=== PATIENT | male | born 1945 | race Caucasian/White ===

== ENCOUNTER → 2020-05-22 09:57 | Outpatient (CLI) | payer MEDICARE, OTHER, SELFPAY ==
--- NOTE | 2020-05-22 | DI.RAD.S_ITS ---
PROCEDURE: [place] BARIUM SWALLOW INDICATIONS: Dysphagia unspecified COMPARISON: None. FINDINGS: Function: Tertiary contraction waves noted in distal esophagus compatible with mild esophageal dysmotility. No elicited gastroesophageal reflux. There is normal transit of a calibrated barium tablet through the esophagus into the stomach. Silent aspiration was noted during the study. Morphology: Air-contrast images demonstrate normal mucosal morphology. Single contrast views show no esophageal strictures, extrinsic mass effects, or diverticula. Limited images of the stomach demonstrate normal appearance. IMPRESSION: 1. Silent aspiration. 2. Mild distal esophageal dysmotility. 3. No gastroesophageal reflux. Dictated by: Ernestine Gray MD, PhD on 05/22/2020 at 12:33 Approved by: Ernestine Gray MD, PhD on 05/22/2020 at 12:35
== END ==
PROVIDERS: Referring Provider Family Medicine; Visit Provider Family Medicine
DX: R13.10 Dysphagia, unspecified (principal); K22.4 Dyskinesia of esophagus; J98.8 Other specified respiratory disorders
CPT/HCPCS: 74220

== ENCOUNTER → 2020-11-05 08:50 | Outpatient (CLI) | payer MEDICARE, OTHER, SELFPAY ==
--- NOTE | 2020-11-05 | DI.RAD.S_ITS ---
PROCEDURE: FL BARIUM SWALLOW W SPEECH INDICATIONS: Dyskinesia of esophagus COMPARISON: TECHNIQUE: Examination was conducted in conjunction with speech pathology per standard protocol. In the lateral projection, filming was performed of the patient swallowing. AP projection filming may also be performed with patient swallowing. COMPARISON: [facility], , [place] BARIUM SWALLOW, 05/22/2020, 9:21. FINDINGS: Function: The oral preparatory phase appears normal, with proper containment. The subsequent oral propulsive phase, pharyngeal phase, and esophageal phase of swallowing also appear normal with all proffered substances. Frequent silent tracheal aspiration noted. Moderate residue. Morphology: No cricopharyngeal bar is identified. No cervical esophageal webs. No Zenker's diverticulum. No strictures. IMPRESSION: Silent tracheal aspiration. Dictated by: Manohar Schulz M.D. on 11/05/2020 at 11:57 Approved by: Manohar Schulz M.D. on 11/05/2020 at 11:58
--- NOTE | 2020-11-05 12:52 | ST.SWALLOW ---
Visit Care Team Role Provider Type ZINA Dominguez Attending Provider Non-Staff Primary Care Provider Referring Provider Specialty: Family Practice Address: [address] [place] [address], [id number] Email: Modified Barium Swallow Study SPA ASSOCIATE Modified Barium Swallow Study Start: 11/05/20 10:35 Freq: Status: Active Protocol: Document 11/05/20 10:36 LNK (Rec: 11/05/20 12:50 LNK [id number]) Modified Barium Swallow Study Total Time Visit Start Time 09:30 Visit Stop Time 10:00 Total Visit Minutes 30 Referral Referring Physician ZINA Dominguez Reason for Referral aspiration/dysphagia Setting Setting Outpatient Care Patient Information Identification Type Name,Date of Patient History Pt seen for a Modified Barium Swallow Study at the referral of his practitioner. According to medical records reviewed, the pt was seen for a barium swallow study in May 2020. During that assessment, as the pt was swallowing the contrast, there was silent aspiration observed. (See radiologist report 05/22/2020) MBSS was ordered. Subjective Observations Pt was seated in the fluoroscopy chair. Instructions and procedure were provided to the pt, who indicated he understood and agreed to proceed. Patient Positioning Position View Lateral Imaging Lateral View Textures Administered Trials Presented Thin Liquid via Spoon,Thin Liquid via Cup,Arlee Liquid via Spoon,Arlee Liquid via Cup,Pudding Thick Liquid via Spoon,Regular Textures Oral Phase Source: MBSIMP (TM) (C) Bolus Specific Scoring Grid Lip Closure WFL Tongue Control During Bolus Hold WFL Bolus Prep/Mastication WFL Bolus Transport/Lingual Motion WFL A/P Lingual Propulsion Delay No Oral Residue No Impairment (WNL) Residue Clearing WFL Nasal Regurgitation No Additional Oral Phase Observations OME indicated missing teeth upper with few molars. Anterior teeth intact. All lower teeth natural in good health. Missing molars (upper ) may present a possible impact on mastication. However , pt feels he is chewing adequately. Pharyngeal Phase Source: MBSIMP (TM) (C) Bolus Specific Scoring Grid Delayed Initiation of Pharyngeal Swallow Yes: Premature spillage to the valecula Number of Seconds Delayed (seconds) ~1+ seconds Soft Palate Elevation WFL Residue Along the Tongue Base Yes Laryngeal Elevation Mild Impairment Anterior Hyoid Movement Moderate Impairment Epiglottic Range of Motion Moderate Impairment Vallecular Residue Yes: Moderate residue; subvallecula residue Clearance of Vallecular Residue Severe Impairment Laryngeal Vestibular Closure Moderate Impairment Pharyngeal Stripping Wave Moderate Impairment Posterior Pharyngeal Wall Residue Yes Clearance of Posterior Pharyngeal Wall Moderate Impairment Residue Upper Esophageal Sphincter Opening WFL Residue in the Pyriform Sinuses Yes Clearance of Residue in the Pyriform Moderate Impairment Sinuses Esophageal Clearance Upright Position WFL Pharyngoesophageal Backflow Observed No Additional Pharyngeal Phase Observations Premaure spillage to the valeculla with silent shadi aspiration (anterior trachea) was observed with the initial tsp of barium. Cued cough did not eliminate tracheal residue . Mild impairment of the elevation of the larynx with moderate impairment of the hyoid bone forward movement. Reduced hyoid movement impacted the epiglottis in that, with smaller bolus sizes , the epiglottis did not fully invert. Instead, it was horizontal in the pharynx with the epiglottal tip against the posterior pharyngeal wall. As a result, there was minimal contact between the tongue base and the pharynx leaving significant residue within the tongue base and the valeculla. Pooling was also noted in the pyriform sinuses, the posterior pharyngeal wall and along the vocal folds. There also appeared to be minimal contraction of the medial pharyngeal constrictor, contributing to the valecullar residue. Valecullar pooling was eventually observed under the epiglottis, which penetrated the laryngeal vestibule with each swallow (trace to minimal amounts/swallow). With larger bolus sizes (i.e., 3 consecutive swallows), the epiglottis did invert. However the laryngeal seal was poor with larger amounts of subepiglottic residue entering the larynx via incomplete approximation of the arytenoids to the epiglottis. This was observed frequently throughout the MBSS. Laryngeal penetration was observed with thin liquids as well as nectar thick liquids. Eventually, the valecullar and sub-epiglottic residue was aspirated silently (posterior trachea). Residue along the anterior wall of the thyroid cartilage was present throughout the MBSS. Trial supraglottic swallow technique was tried with no improvement in swallow safety. Coughing (cued/spontaneous) was mildly effective in clearing residue; however, trace residue remained in the trachea and along the vocal folds. After the MBSS the results of the evaluation were discussed with the pt with still images of the swallows recorded. During this discussion the pt remarked that he has observed a change in his voice. He stated that he feels his voice is more raspy and hoarse. It is possible that there is an element of presbylaryngis, given he pt's age. This could contribute to aspiration as the vocal folds would be bowed from muscle weakness and/or loss of muscle mass, allowing pooled residue to enter the trachea. ENT referral is recommended to determine if the pt presents with presbylaryngis. A/P View Clinical Impressions Dysphagia Type Pharyngeal Rehabilitation Potential Good Patient Appropriate for Therapy Yes Recommendations Treatment Plan Therapy Recommendations Outpatient Speech Therapy,Base of Tongue Exercises,Vocal Fold Adduction Exercises Recommended Referrals Primary Care Physician,ENT Consult Additional Recommended Referrals Possible candidate for VitalStim therapy
== END ==
PROVIDERS: PCP Nurse Practitioner; Referring Provider Nurse Practitioner; Visit Provider Nurse Practitioner
DX: K22.4 Dyskinesia of esophagus (principal)
CPT/HCPCS: 74230; 92611

== ENCOUNTER → 2020-12-18 09:59 | Outpatient (CLI) | payer MEDICARE, OTHER, SELFPAY ==
[2020-12-18 11:24] LABS: COVID19 -Nasal RAPID Negative (Negative)
== END ==
PROVIDERS: PCP Nurse Practitioner; Visit Provider Specialist
DX: Z20.822 Contact with and (suspected) exposure to COVID-19 (principal)
CPT/HCPCS: 87635; C9803

== ENCOUNTER 2020-12-19 12:57 | Day surgery (SDC) | payer MEDICARE, OTHER, SELFPAY ==
[2020-12-19] VITALS (7 sets, daily range): BP systolic 127–154; BP diastolic 71–85; PULSE 52–58; RESP 9–16; TEMP 36.4–36.8; O2SAT 94–100; BMI 24.3
[2020-12-19] MEDS: ACETAMINOPHEN 325 MG TABLET 975 MG PO (13:52)
[2020-12-19] MEDS: LACTATED RINGERS 1,000 ML 100 ML IV (13:53)
--- NOTE | 2020-12-19 14:07 | PM.PREOP ---
Pre-operative Note COVID-19 COVID-19 status: Negative Result date/Date tested (Pos, Neg/Pending): 12/18/20 Interval Note History & Physical reviewed/Exam performed by Physician: Yes Changes to H&P: No
[2020-12-19] MEDS: CEFAZOLIN 2 GM/100 ML FROZ.PIGGY IV (14:32)
--- NOTE | 2020-12-19 14:46 | SUR.OPER ---
Supine on padded OR bed, head on pillow, arms secured on padded arm boards at <90 degrees abduction, legs uncrossed, safety belt at thigh, tape over blanket over lower legs.
[2020-12-19] MEDS: BUPIVACAINE 0.5% (PF) VIAL 30 ML INJ (14:54)
--- NOTE | 2020-12-19 15:58 | PM.OP.1 ---
Operative Date/Time/Diagnoses Date of procedure: 12/19/20 Time of procedure: 16:00 Pre-op diagnosis: Left inguinal hernia reducible Post-op diagnosis: same (Indirect hernia) Procedure & Clinicians Procedure: Repair left inguinal hernia plug and patch technique Same procedure as scheduled: Yes Indications: Symptomatic hernia Surgeon: Alli Walton Click Yes if Unassisted: Yes Anesthesia Type: General Operative Notes Findings: Indirect hernia Closure Type: primary Specimen(s): none sent Prosthetic devices, grafts, tissues, transplants, or devices: Small plug and patch Estimated Blood Loss (mL): 7 Blood products transfused: none Procedure in detail: The patient was placed supine on the operating room table and underwent general LMA anesthesia. He was prepped and draped in the usual fashion. A transverse incision was made overlying the left internal ring and carried down to the level of the external oblique. The external oblique was opened parallel with its fibers through the external ring. The cord structures were elevated. The cremaster was opened proximally and search made for an indirect sac. One was found a from surrounding structures. It was ligated with a 2-0 silk and the stump allowed to retract. Small plug was placed in the defect and tacked into place with 2-0 silk. The cremaster was closed over it with a 3-0 Vicryl.. The floor was examined and was found to be weakened.. A patch was placed across the floor and tacked at the pubic tubercle, the posterior lamella of the anterior rectus sheath, the ilioinguinal ligament, and superior lateral to the cord. The opening was modified as necessary to prevent tight constriction of the cord. Sutures of 0 Ethibond were used to secure the mesh. The external oblique was closed with a running 3 0 Vicryl. The subcu was closed with interrupted 3 0 Polysorb. The skin was closed with a running 4 0 Vicryl subcuticular stitch and Steri-Strips. Dressing was applied, the patient was awakened, and the patient was taken to the recovery area in good condition. Complications: none Post-operative Condition: stable Disposition: PACU
[2020-12-19 16:42] LABS: Alanine Aminotransferase 23 IU/L (<50)
[2020-12-20 08:27] LABS: Hepatitis B Surf Ab Qualitativ Non Reactive (.)
[2020-12-20 16:00] LABS: Hepatitis B Surface Antigen NEGATIVE s/c (NEGATIVE)
[2020-12-20 16:16] LABS: HIV 1 & 2 Ab/Ag 4th Gen Combo NEGATIVE (NEGATIVE); Hep C Virus Ab w/Reflex Quant NEGATIVE s/c (NEGATIVE)
== END 2020-12-19 16:30 | disposition home or self-care (01) ==
PROVIDERS: PCP Nurse Practitioner; Referring Provider Specialist; Visit Provider Specialist
PROC: (CPT 49505; principal; 2020-12-19 14:15)
DX: K40.90 Unilateral inguinal hernia, without obstruction or gangrene, not specified as recurrent (principal); I10 Essential (primary) hypertension; I49.9 Cardiac arrhythmia, unspecified
CPT/HCPCS: 49505; 82962; C1781; J0690; J1100; J2250; J2405; J2704; J3010